=== PATIENT | male | born 1935 | race Caucasian/White ===

== ENCOUNTER 2016-08-14 17:24 | Observation (INO) | payer OTHER ==
--- NOTE | ~2016-08-14 | HP ---
History And Physical [place] [id number] [facility] [place]. [address] NAME: MIGUEL HAGAN : 39 STATUS : ADM Alex PAT#: [id number] AGE: 81 ADM/REG DATE : 08/14/16 MR#: [id number] REPORT SERV DATE: 08/15/16 DICTATED BY: MAURICE LEE DATE: 08/15/16 REPORT STATUS : Draft TRANSCRIBED BY: MARTA DATE: 08/15/16 DATE OF ADMISSION: 08/14/2016 [place] OPERATOR: Kirill Woods M.D. CHIEF COMPLAINT: Atypical chest pain. HISTORY OF PRESENT ILLNESS: A very pleasant 81-year-old white gentleman with known history of CAD, status post a self-reported two heart attacks, four coronary stents, and CABG x2 in 2001 at [facility] in [place], [place]. The patient is being followed as well for chronic systolic heart failure with most recent EF of 35% in 05/2016 with repeat echo scheduled for 09/01/2016 with scheduled cardiology followup. The patient states he was in his usual state of health. He walked his routine 2-1/2 miles on August 14 in the morning without any problem. Later on the day around 12 noon, he was working on a go-kart for a family member. He states that he got hot, came into the house, drank a cold Dr Pepper and began hurting and burning in his chest. He indicates his right lower chest that radiated up to his mid chest. He did take a Prilosec and a couple of Tums. He actually vomited the Tums up. Later with family's suggestion, he took two nitroglycerin and the discomfort eventually eased. He states that these symptoms are dissimilar to his previous cardiac events. The patient reports a personal history of two heart attacks and four coronary stents. Denies history of stroke, DVT, or pulmonary embolus. The patient was recently treated for a cold with antibiotics. Denies palpitations. No syncopal episodes. Denies PND or orthopnea. PAST MEDICAL HISTORY: 1. CAD. a. Reports [place] x2. b. Total of four coronary stents to unknown vessels. c. Status post CABG x2 in 2001 at [facility] in [place], [place]. d. Systolic heart failure with EF of 35% by echo in 05/2016. 2. Dyslipidemia. 3. GERD. 4. Positive family history for early CAD. 5. Remote tobacco abuse. PAST SURGICAL HISTORY: 1. CABG x2 in 2001. 2. Hernia repair x3. 3. Cataract repair. SOCIAL HISTORY: He is with two children. Previously employed in a chemical plant, now retired. Walks 2-1/2 miles on most days on a track without incident, most recently on August 14, without incident. Quit smoking in 1981. Rarely consumes alcohol. Denies illicits. History And Physical [address] [address] NAME: MIGUEL HAGAN : 39 STATUS : ADM Alex PAT#: [id number] AGE: 81 ADM/REG DATE : 08/14/16 MR#: [id number] REPORT SERV DATE: 08/15/16 DICTATED BY: MAURICE LEE DATE: 08/15/16 REPORT STATUS : Draft TRANSCRIBED BY: MARTA DATE: 08/15/16 FAMILY HISTORY: Mother of a stroke at the age of 68. REVIEW OF SYSTEMS: A 14-point review of systems is performed, significant for HPI. No other contributory diagnoses identified. ALLERGIES: NO KNOWN DRUG ALLERGIES. HOME MEDICINES: Lac-Hydrin lotion for psoriasis p.r.n., aspirin 325 daily (recommended a reduction to 81 mg daily), benazepril 40 mg daily, Coreg 6.25 twice daily, Cardura 1 mg nightly, multivitamin daily, nitroglycerin p.r.n., fish oil 1200 mg twice daily, Prilosec 20 mg three times daily and p.r.n., Systane drops p.r.n., Metamucil 45 mL daily, simvastatin 40 mg nightly, saline spray p.r.n., Aldactone 12.5 mg daily. PHYSICAL EXAMINATION: VITAL SIGNS: Bilateral blood pressures on arrival, right 155/75, left 148/70, this morning 131/69. Pulse 59, respirations 16, temperature 98.1, O2 saturation 96% on room air. Height 6 feet 0 inches, weight 175 pounds. BMI 23.7. GENERAL: Cooperative, in no apparent distress. HEENT: Pupils 2 mm, sclera nonicteric. Nares patent. Moist mucous membranes. No xanthelasma. NECK: Trachea midline, no thyromegaly. No JVD. No bruits. LYMPH: No cervical lymphadenopathy. No supraclavicular lymphadenopathy. RESPIRATORY: Unlabored respirations. Breath sounds clear bilaterally to posterior auscultation. No wheezes or rhonchi. CARDIOVASCULAR: Regular rate. No murmur, rub or gallop appreciated. Extremities without edema. Pulses 2+ bilaterally. ABDOMEN: Soft, nontender, nondistended, normal bowel sounds auscultated throughout. No organomegaly. SKIN: Warm, dry extremities. No pallor, or cyanosis. PSYCHIATRIC: Appropriate affect. Alert, oriented x3. LABORATORY DATA: Troponin less than 0.02 x3, potassium 4.5, BUN 13, creatinine 0.90, glucose 100, magnesium 1.9. WBC 10.2, hemoglobin 12.3, hematocrit 35.6, and platelet count 210,000. IMAGING: EKG: Sinus rhythm, PRWP, nonspecific T-waves. Echo on 06/27/2016: EF 35%. Large area of anterior septal and apical HK. Moderate MR with mild LAE (previous EF was 43% in 05/2015). MPI on 07/22/2016: Clifford stage 3, 7: 0, 2 minutes, 10 METs, previous infarct, no current ischemia, EF of 37%. ASSESSMENT AND PLAN: 1. Atypical chest pain, dissimilar to previous cardiac events. The patient has been observed in the CPOU. Three sets of cardiac markers are negative. EKG is unchanged. Recent stress test on 07/22/2016 was negative for current ischemia. The patient will be held n.p.o. for now, seen by the rounding automotive electrician helper today, would recommend History And Physical [address] [address] NAME: MIGUEL HAGAN : 39 STATUS : ADM Alex PAT#: [id number] AGE: 81 ADM/REG DATE : 08/14/16 MR#: [id number] REPORT SERV DATE: 08/15/16 DICTATED BY: MAURICE LEE DATE: 08/15/16 REPORT STATUS : Draft TRANSCRIBED BY: MODL DATE: 08/15/16 discharge home with planned echocardiogram on 09/01/2016 and previously arranged Cardiology followup thereafter. We will discuss all with rounding automotive electrician helper, further recommendations forthcoming. 2. Coronary artery disease, continue home medications. 3. Hypertension, monitor blood pressure and continue home medications. 4. Dyslipidemia, continue statin. 5. Gastroesophageal reflux disease, PPI per routine. 6. Chronic systolic heart failure with ejection fraction of 35%, on Coreg scheduled. Repeat echo on 09/01/[address] Woods. Follow up as previously planned. SUSAN/MARTA HUE Lopez, WIG SALES CONSULTANT-BC / [id number] CC: HUE Lopez, WIG SALES CONSULTANT-BC Paul Aldridge M.D. Kirill Woods M.D.
[2016-08-14 15:36] LABS: BASOPHILS 0.2 %; BASOPHILS ABSOLUTE 0.02 10/3/uL (0.0-0.16); EOSINOPHILS 0.6 %; EOSINOPHILS ABSOLUTE 0.06 10/3/uL (0.0-0.53); HEMATOCRIT 35.6 % (40.0-51.0); HEMOGLOBIN 12.3 g/dL (13.6-17.8); IMMATURE GRANULOCYTES 0.2 %; IMMATURE GRANULOCYTES ABSOLUTE 0.02 10/3/uL (0.0-0.11); LYMPHOCYTES 14.7 %; MEAN CORPUS HGB CONC 34.6 g/dL (32.0-36.0); MEAN CORPUSCULAR HEMOGLOB 32.5 pg (26.0-34.0); MEAN CORPUSCULAR VOLUME 93.9 fL (80-100); MEAN PLATELET VOLUME 9.3 fL (9.2-13.0); MONOCYTES 5.4 %; MONOCYTES ABSOLUTE 0.55 10/3/uL (0.21-1.20); NEUTROPHILS 78.9 %; NEUTROPHILS ABSOLUTE 8.05 10/3/uL (2.02-8.40); PLATELET COUNT 210 10/3/uL (150-400); RBC DISTRIBUTION WIDTH 12.8 % (12.0-16.0); RED CELL COUNT 3.79 10/6/uL (4.7-6.1); WHITE BLOOD CELLS 10.2 10/3/uL (4.5-10.5)
[2016-08-14 15:38] LABS: MANUAL DIFF NO %
[2016-08-14 15:46] LABS: INTERNATIONAL NORMAL RATI 1.1 UNITS (-); PARTIAL THROMBO TIME 31.9 SEC (22.5-37.2); PROTIME (NOT ORD) 13.8 SEC (12.0-14.5)
[2016-08-14 15:52] LABS: BUN (BLOOD UREA NITROGEN) 13 MG/DL (6-23); CALCIUM, SERUM 8.7 MG/DL (8.5-10.4); CHEST PAIN PROFILE TAT 0 Hrs 20 Mins; CHLORIDE, SERUM 104 MMOL/L (96-112); CO2 (CARBON DIOXIDE) 27 MMOL/L (24-34); GFR AFRICAN AMERICAN 94 ML/MIN (>=60); GFR NON AFRICAN AMERICAN 81 ML/MIN (>=60); GLUCOSE, SERUM 100 MG/DL (60-99); POTASSIUM, SERUM 4.5 MMOL/L (3.5-5.3); SODIUM, SERUM 137 MMOL/L (135-148); TROPONIN I <0.02 NG/ML (<0.05)
[2016-08-14] MEDS ORDERED: ASA5GR PO (17:30)
[2016-08-14] MEDS ORDERED: ZOCOR40 PO (17:30)
[2016-08-14] MEDS ORDERED: LOTE40 PO (17:30)
[2016-08-14] MEDS ORDERED: CARDURA1 MG PO (17:31)
[2016-08-14] MEDS ORDERED: SPIRO25 PO (17:31)
[2016-08-14] MEDS ORDERED: COREG6 PO (17:31)
[2016-08-14] MEDS ORDERED: FISH OIL1200 MG PO (17:32)
[2016-08-14] MEDS ORDERED: PRILO PO ×2 (17:32)
[2016-08-14] MEDS ORDERED: CENTRUM PO (17:33)
[2016-08-14] MEDS ORDERED: LAC-HYDRIN TOP (17:34)
[2016-08-14] MEDS ORDERED: SYSTANE OPH (17:35)
[2016-08-14] MEDS ORDERED: METAMUCIL CAN7 OZ PO (17:36)
[2016-08-14] MEDS ORDERED: NITROSTAT0.4 MG SL (17:37)
[2016-08-14] MEDS ORDERED: OCEAN NAS (17:37)
[2016-08-15] MEDS ORDERED: ASAB PO (12:28)
== END 2016-08-15 12:45 | disposition home or self-care (01) ==
LOC: ER 17:24 → CDU1 17:45 → CDU2 17:54
PROVIDERS: Emergency Medicine
DX: R07.89 Other chest pain (principal); I25.10 Atherosclerotic heart disease of native coronary artery without angina pectoris; I11.0 Hypertensive heart disease with heart failure; I50.22 Chronic systolic (congestive) heart failure; E78.5 Hyperlipidemia, unspecified; K21.9 Gastro-esophageal reflux disease without esophagitis; Z82.49 Family history of ischemic heart disease and other diseases of the circulatory system; Z87.891 Personal history of nicotine dependence; Z98.890 Other specified postprocedural states; Z82.3 Family history of stroke; Z95.1 Presence of aortocoronary bypass graft; Z79.82 Long term (current) use of aspirin; Z79.899 Other long term (current) drug therapy; Z98.49 Cataract extraction status, unspecified eye
CPT/HCPCS: 71020; 80048; 83735; 84484; 85025; 85610; 85730; 93005; 99285; A9270-GY; G0378